=== PATIENT | female | born 1980 | race Asian ===

== ENCOUNTER 2021-03-02 13:45 | Outpatient (CLI) | payer OTHER | END 2021-03-02 13:46 | disposition home or self-care (01) | LOC: COV 13:45 | PROVIDERS: ATTEND Family Medicine | DX: R05 Cough (principal); R06.02 Shortness of breath; M79.10 Myalgia, unspecified site; R53.83 Other fatigue; R07.0 Pain in throat; R19.7 Diarrhea, unspecified; Z20.822 Contact with and (suspected) exposure to COVID-19 ==